=== PATIENT | male | born 1980 | race Caucasian/White ===

== ENCOUNTER 2023-03-29 16:44 | Emergency (ER) | payer MEDICAID, SELFPAY ==
[2023-03-29 17:25] VITALS: BP 157/86; PULSE 79; RESP 20; TEMP 36.6; O2SAT 97; BMI 32.6
--- NOTE | 2023-03-29 17:25 | ED.GENADULT ---
HPI - General Adult General Chief complaint: Skin/Abscess/Foreign Body Stated complaint: both legs swollen Time Seen by Provider: 03/29/23 17:55 Source: patient Mode of arrival: ambulatory Limitations: no limitations History of Present Illness HPI narrative: Patient otherwise healthy scratched his right lower leg 2 days ago next day noticed redness and swelling no fever no chills no calf tenderness no shortness of breath Related Data Previous Rx's Medication Instructions Recorded cephalexin 500 mg capsule 500 mg PO QID 10 days #40 caps 03/29/23 doxycycline hyclate 100 mg tablet 100 mg PO BID #20 tabs 03/29/23 Allergies Allergy/AdvReac Type Severity Reaction Status Date / Time No Known Allergies Allergy Verified 03/29/23 17:27 Review of Systems Review of Systems: Yes all other systems are reviewed and are negative [facility] Social History Social History Advance Directives: No Advance Directives Information Provided: No Physical Exam ED Vital Signs: Vital Signs - 24 hr 03/29/23 17:25 Temperature 97.9 F Pulse Rate 79 Respiratory Rate 20 Blood Pressure 157/86 H Pulse Oximetry 97 Oxygen Delivery Method Room Air BMI result Body Mass Index 32.6 Appearance: Alert. Oriented X3. No acute distress. Neck: Normal inspection. Neck supple. CVS: Normal heart rate and rhythm. Pulses normal. Respiratory: No respiratory distress. Equal air entry bilateral, no wheezing/rales/rhonchi Abdomen: Soft and nontender. Bowel sounds are present, no mass palpable, no CVA tenderness Skin: Skin warm and dry. Erythema right lower extremity no open area Extremities: Trace lower extremity edema. No calf tenderness Neuro: Oriented X 3. No motor deficit. Course Course Course Narrative: RME: 42yo M w/PMHx HLD, c/o B/L LE edema and RLE erythema x yesterday. Admits was scratching legs +b/l LE edema noted > RLE w/RLE erythema EKG, Labs, CXR, US venous duplex ordered Full HPI, ROS and PE to be performed by primary ED provider. Medications Administered Discontinued Medications Generic Name Dose Route Start Last Admin Trade Name Freq PRN Reason Stop Dose Admin Cephalexin HCl 500 mg 03/29/23 17:58 03/29/23 18:09 Cephalexin 500 Mg Capsule PO 03/29/23 17:59 500 mg ONCE ONE Administration Doxycycline Monohydrate 100 mg 03/29/23 17:58 03/29/23 18:09 Doxycycline Monohydrate 100 Mg Capsule PO 03/29/23 17:59 100 mg ONCE ONE Administration Medical Decision Making Medical Decision Making [facility] Narrative: Patient with cellulitis of the right lower extremity Homans sign negative for DVT no risk factor for DVT no recent travel labs are stable discharge patient home on Keflex and doxycycline advised him not to stand for hours which he does at his job Lab Data [facility] Lab Attestation statement: I reviewed the patient's lab results. 03/29/23 17:52 Labs: Lab Results 03/29/23 03/29/23 03/29/23 Range/Units 17:52 17:52 17:52 WBC 8.2 (4.8-10.8) X10*3/uL RBC 4.18 L (4.60-5.80) X10*6/uL Hgb 12.3 L (14.0-18.0) g/dl Hct 35.8 L (42.0-52.0) % MCV 85.6 (80.0-98.0) fL MCH 29.4 (27.0-33.0) pg MCHC 34.4 (31.0-36.0) g/dl RDW 12.7 (11.0-16.0) % Plt Count 311 (160-400) X10*3/uL MPV 8.8 L (9.4-12.4) fL Immature Gran % (Auto) 0.2 (0.0-0.4) % Neut % (Auto) 52.6 (45-73) % Lymph % (Auto) 36.9 (20-40) % [place] % (Auto) 8.0 (2-11) % Eos % (Auto) 1.8 (0-4) % Baso % (Auto) 0.5 (0-2) % Lymph # (Auto) 3.0 (1.2-4.9) X10*3/uL [place] # (Auto) 0.7 (0.1-1.2) X10*3/uL Eos # (Auto) 0.2 (0.0-0.4) X10*3/uL Baso # (Auto) 0.0 (0.0-0.2) X10*3/uL Abs Immat Gran (auto) 0.02 (0.00-0.03) X10*3/uL Absolute Neuts (auto) 4.3 (2.0-8.3) x10*3/uL Absolute Nucleated RBC 0.000 (0.0-0.012) X10*3/uL Nucleated RBC % (auto) 0.0 (0.0-0.2) /100WBC PT 10.6 (10.0-13.1) SEC INR 0.9 (0.9-1.1) Total Bilirubin 0.2 (0.0-1.0) mg/dL Direct Bilirubin < 0.2 (0.0-0.5) mg/dL AST 20 (5-37) U/L ALT 16 (0-40) U/L Alkaline Phosphatase 134 H (39-117) U/L Troponin I High Sens (<3.5-35.0) ng/L B-Natriuretic Peptide (<100) pg/mL Total Protein 6.9 (6.5-8.0) g/dL Albumin 3.7 (3.5-5.0) g/dL 03/29/23 03/29/23 Range/Units 17:52 17:52 WBC (4.8-10.8) X10*3/uL RBC (4.60-5.80) X10*6/uL Hgb (14.0-18.0) g/dl Hct (42.0-52.0) % MCV (80.0-98.0) fL MCH (27.0-33.0) pg MCHC (31.0-36.0) g/dl RDW (11.0-16.0) % Plt Count (160-400) X10*3/uL MPV (9.4-12.4) fL Immature Gran % (Auto) (0.0-0.4) % Neut % (Auto) (45-73) % Lymph % (Auto) (20-40) % [place] % (Auto) (2-11) % Eos % (Auto) (0-4) % Baso % (Auto) (0-2) % Lymph # (Auto) (1.2-4.9) X10*3/uL [place] # (Auto) (0.1-1.2) X10*3/uL Eos # (Auto) (0.0-0.4) X10*3/uL Baso # (Auto) (0.0-0.2) X10*3/uL Abs Immat Gran (auto) (0.00-0.03) X10*3/uL Absolute Neuts (auto) (2.0-8.3) x10*3/uL Absolute Nucleated RBC (0.0-0.012) X10*3/uL Nucleated RBC % (auto) (0.0-0.2) /100WBC PT (10.0-13.1) SEC INR (0.9-1.1) Total Bilirubin (0.0-1.0) mg/dL Direct Bilirubin (0.0-0.5) mg/dL AST (5-37) U/L ALT (0-40) U/L Alkaline Phosphatase (39-117) U/L Troponin I High Sens < 2.7 (<3.5-35.0) ng/L B-Natriuretic Peptide 19 (<100) pg/mL Total Protein (6.5-8.0) g/dL Albumin (3.5-5.0) g/dL Discharge Plan Discharge Clinical Impression: Cellulitis Patient Disposition: Home, Self-Care Instructions: Cellulitis (ED) Additional Instructions: Keep your leg elevated Do not stand for long hours Take antibiotic as prescribed Report to the ER/PCP if worsening of the redness/fever Prescriptions: New cephalexin 500 mg capsule 500 mg PO QID 10 Days Qty: 40 0RF doxycycline hyclate 100 mg tablet 100 mg PO BID Qty: 20 0RF
== END 2023-03-29 18:50 | disposition home or self-care (01) ==
PROVIDERS: Emergency Provider Internal Medicine
DX: L03.115 Cellulitis of right lower limb (principal); M79.89 Other specified soft tissue disorders
CPT/HCPCS: 36415; 71046; 80076; 83880; 84484; 85025; 85610; 93005; 99283